=== PATIENT | female | born 1945 | race Two or more races ===

== ENCOUNTER 2023-02-23 13:00 | Emergency (ER) | payer OTHER ==
[~2023-02-23] VITALS: Ht 154.9 cm; Wt 64.2 kg
[2023-02-23 13:44] LABS: Basophils # (auto) 0 10 ^3/uL (0-0.2); Basophils % (auto) 0.5 % (0.0-2.0); Eosinophils # (auto) 0.1 10 ^3/uL (0-0.8); Eosinophils % (auto) 1.1 % (0.0-7.0); Hematocrit 37.9 % (36.0-46.0); Hemoglobin 12.6 g/dL (12.2-16.2); Lymphocytes # (auto) 1.8 10 ^3/uL (0.4-5.4); Lymphocytes % (auto) 20.7 % (10.0-50.0); Mean Corpuscular Hemoglobin 27.5 pg (28.0-32.0); Mean Corpuscular Hgb Conc. 33.1 g/dL (32.0-36.0); Mean Corpuscular Volume 82.9 fL (80.0-100.0); Monocytes # (auto) 0.7 10 ^3/uL (0-1.3); Monocytes % (auto) 7.4 % (0.0-12.0); Neutrophils # (auto) 6.2 10 ^3/uL (1.6-8.6); Neutrophils % (auto) 70.3 % (37.0-80.0); Red Blood Cells 4.58 10^6/uL (4.0-5.20); Red Cell Distribution Width 14.3 % (11.8-14.3); White Blood Cell 8.8 10^3/uL (4.4-10.8)
[2023-02-23 14:06] LABS: Albumin 4.1 g/dL (3.4-5.0); Potassium 3.7 mmol/L (3.5-5.1)
[2023-02-23 14:11] LABS: BUN/Creatinine Ratio 20.5 (10.0-20.0); Bilirubin, Total 0.6 mg/dL (0.2-1.0); Calcium 10.8 mg/dL (8.5-10.1)
[2023-02-23 14:34] LABS: INR 1.03 (0.9-1.15); Prothrombin Time 10.8 sec (9.3-11.8)
[2023-02-23] MEDS ORDERED: SODIUM CHLORIDE 0.9% 1,000 ML IV ONE (16:00)
[2023-02-23] MEDS ORDERED: SODIUM CHLORIDE 0.9% 500 ML IV ONE ×3 (16:30→20:45)
[2023-02-23 19:06] LABS: Urine Bacteria NONE SEEN /hpf (None Seen); Urine Blood Negative /uL (Negative); Urine Clarity Clear (Clear); Urine Color Colorless (Yellow); Urine Protein, UAD TRACE (Negative); Urine Specific Gravity 1.009 (1.001-1.035); Urine Urobilinogen Normal (Negative); Urine WBC 37 /hpf (0 - 5)
[2023-02-23 19:39] LABS: BUN/Creatinine Ratio 24.9 (10.0-20.0); Calcium 9.9 mg/dL (8.5-10.1); Potassium 3.6 mmol/L (3.5-5.1)
[2023-02-23] MEDS ORDERED: cefTRIAXone 1GM/50ML D5W 50 ML IV ONE (20:45)
[2023-02-23] MEDS ORDERED: LEVO250T58 PO (21:04)
[2023-02-23 21:35] VITALS: BP 147/63; PULSE 89; RESP 17; TEMP 97.8; O2SAT 98
[2023-02-24] MEDS ORDERED: levoFLOXacin 250 MG TAB PO SCH (10:00)
== END 2023-02-23 21:35 | disposition home or self-care (01) ==
LOC: ER 13:00
DX: E86.0 Dehydration (principal); R53.1 Weakness; E11.22 Type 2 diabetes mellitus with diabetic chronic kidney disease; I12.9 Hypertensive chronic kidney disease with stage 1 through stage 4 chronic kidney disease, or unspecified chronic kidney disease; N18.9 Chronic kidney disease, unspecified; E78.6 Lipoprotein deficiency; Z86.73 Personal history of transient ischemic attack (TIA), and cerebral infarction without residual deficits
CPT/HCPCS: 36415; 70450; 71045; 80048; 80053; 81001; 84484; 85025; 85610; 93005; 96361; 96374; 99285; J0696; J7030; J7040